=== PATIENT | female | born 1970 | race Caucasian/White ===

== ENCOUNTER 2023-05-21 04:51 | Emergency (ER) | payer OTHER, SELFPAY ==
[2023-05-21] VITALS (10 sets, daily range): BP systolic 152; BP diastolic 91; PULSE 56–85; RESP 16; TEMP 36.2; O2SAT 92–99; BMI 31.9
--- NOTE | 2023-05-21 05:20 | XR_ITS ---
Final Report Patient: JUAN J QUINTERO Facility:?[facility] Patient ID:?[id number] Site Patient ID:?[id number]. Site :?[id number] Study:?XRay Chest PA AND LATERAL-05/21/2023 5:44:33 AM Ordering Physician:Dariela Final Report: INDICATION: : Chest pain and flutter TECHNIQUE: PA and lateral 2 view chest COMPARISON: None FINDINGS: Lung volumes are good. No focal or diffuse opacities. No pleural effusion. No pneumothorax. Heart size is normal. IMPRESSION: Normal chest radiographs. Dictated by Yazmin Ferrara MD @ 05/21/2023 5:47:20 AM (Electronic Signature)
--- NOTE | 2023-05-21 05:22 | ED_ITS ---
HPI - General Adult General Chief complaint: Chest Pain Stated complaint: Chest discomfort. Time Seen by Provider: 05/21/23 05:08 Source: patient Mode of arrival: ambulatory Limitations: no limitations History of Present Illness HPI narrative: 52-year-old female presents to the emergency department for evaluation of chest discomfort and fluttering for the past few weeks, intermittent. Worsening over the last couple of days, unable to sleep tonight. She is uncertain if this is related to anxiety, menopause, stress or her heart. She has no personal history of cardiac disease. Maternal grandfather at a young age of what was suspected to be a heart attack but it is difficult to get confirmation of that, as the patient's mother was quite young at the time. No fevers, no shortness of breath, no dizziness or nausea or abdominal pain. Has not tried taking any medication to help with her symptoms. Initially, symptoms started while she was drinking hot coffee. Tend to last a few minutes to up to a few hours at a time. Does not feel like single large beats. No history of GERD or reported heartburn symptoms. No fever, trauma or injury. Pain not positional. Dull and achy, substernal, does not radiate. No prior history of similar symptoms or prior workup. Past medical history benign per her report. Has not seen a primary care provider in over a year. Does not take any regular medications, no allergies. Nonsmoker. Risk factor for heart disease include family history and obesity. Prior surgery includes only a lumbar back surgery, not recent. ROS is notable for the cardiac type chest symptoms as above, frequent hot flashes, otherwise denies times 12 systems. Related Data Home Medications Medication Instructions Recorded Confirmed No Known Home Medications 05/21/23 05/21/23 Allergies Allergy/AdvReac Type Severity Reaction Status Date / Time erythromycin Allergy Uncoded 05/21/23 05:00 PFSH PFSH Social History Non-prescribed substance use: denies use Exam Const: Vital Signs, click to edit/add: Vital Signs - 24 hr 05/21/23 05:01 05/21/23 05:05 05/21/23 05:06 Temperature 97.2 F L Pulse Rate 75 85 Pulse Rate [Pulse Oximeter] 79 Respiratory Rate 16 Blood Pressure 152/91 H Blood Pressure [Ri ght Upper Arm] 152/91 H Pulse Oximetry 98 97 97 Oxygen Delivery Me thod Room Air 05/21/23 05:15 Temperature Pulse Rate 81 Pulse Rate [Pulse Oximeter] Respiratory Rate Blood Pressure Blood Pressure [Ri ght Upper Arm] Pulse Oximetry 99 Oxygen Delivery Ny thod Documenting provider has reviewed patient's vital signs: yes Common normals: no apparent distress and alert General appearance: cooperative, comfortable and well kempt Other: Great historian. Friendly and cooperative. HENMT: Common normals: normocephalic Head and scalp: normocephalic Face and sinus: normal facial exam Mouth: oral and palatal mucosa normal Throat: posterior oropharynx normal Eye: Common normals: conjunctivae normal General eye: normal appearance of both eyes Conjunctiva: conjunctiva(e) normal Neck & C-Spine: Common normals: no lymphadenopathy General: normal visual inspection Chest: Common normals: inspection of chest normal and palpation of chest normal Resp: Common normals: normal respiratory effort, no use of accessory muscles and clear to auscultation bilaterally Effort & inspection: able to speak in complete sentences Auscultation: clear to auscultation bilaterally Cardio: Common normals: regular rate, regular rhythm, S1 normal heart sound, S2 normal heart sound and no murmurs Rate: regular rate Rhythm: regular rhythm Heart sounds: S1 normal and S2 normal GI: Common normals: Normal to inspection, nondistended, normoactive bowel sounds present, soft to palpation, non-tender, no hepatosplenomegaly and no masses Palpation: soft and no hepatosplenomegaly Extremity: Common normals: normal capillary refill and no pedal edema Neuro: Common normals: moves all extremities Sensorium/orientation: alert Speech: speech normal Psych: Common normals: thought process normal and speech normal Appearance: well kempt Activity/motor behavior: appropriate eye contact Speech: normal speech Thought process: normal thought process Insight: insight good Judgement: judgment good Skin: Common normals: no rashes or lesions noted General skin exam: no rashes or lesions noted Course Course ED Course: 52-year-old female with palpitations, occasional chest pain. Risk factors for heart disease include obesity and likely family history based on her description. Differential diagnosis includes thyroid disease, anxiety, soft spasm, NH, bronchospasm, pericarditis, musculoskeletal etiology, among others. Patient does have a smart watch but it does not have an arrhythmia detector. No signs of tachycardia, hypotension. Initial blood pressure is slightly elevated. No signs of hypoxia. Recommended EKG, playground monitor, basic labs including magnesium and thyroid level as well as liver function BNP, chest x-ray and typical electrolytes and CBC. No treatments at this time. Await findings. Reevaluation(s) Time of Reevaluation #1: 06:42 Reevaluation #1: Discussed findings with patient and significant other. All blood work, chest x- ray and EKG are reassuring. She has not had any significant episodes while in the ED for the last 90 minutes. We did not catch any signs of arrhythmia on our monitors. Have recommended that she see her primary care provider to arrange a Holter monitor and consider stress testing if appropriate. Counseled that this could also be GERD related and that a trial of proton pump inhibitor may be warranted if the Holter monitor is not revealing. Alarm symptoms reviewed that would warrant ED presentation. She verbalizes understanding and agreement. See written instructions, all questions answered. Vital Signs Vital signs: Initial Vital Signs Temperature 97.2 F L 05/21/23 05:01 Temperature Source Temporal Artery Scan 05/21/23 05:01 Pulse Rate 79 05/21/23 05:01 Pulse Strength 3+ Normal 05/21/23 05:01 Respiratory Rate 16 05/21/23 05:01 Blood Pressure 152/91 H 05/21/23 05:01 Blood Pressure Mean 111 H 05/21/23 05:01 Blood Pressure Position Sitting 05/21/23 05:01 Pulse Oximetry 98 05/21/23 05:01 Oxygen Delivery Method Room Air 05/21/23 05:01 Vital Signs Temperature 97.2 F L 05/21/23 05:01 Pulse Rate 79 05/21/23 05:01 Respiratory Rate 16 05/21/23 05:01 Blood Pressure 152/91 H 05/21/23 05:01 Pulse Oximetry 98 05/21/23 05:01 Oxygen Delivery Method Room Air 05/21/23 05:01 Temperature 97.2 F L 05/21/23 05:01 Pulse Rate 81 05/21/23 05:15 Respiratory Rate 16 05/21/23 05:01 Blood Pressure 152/91 H 05/21/23 05:05 Pulse Oximetry 99 05/21/23 05:15 Oxygen Delivery Method Room Air 05/21/23 05:01 Medical Decision Making Lab Data Labs: Lab Results 05/21/23 05/21/23 Range/Units 05:15 05:20 WBC 6.19 (4.50-11.00) K/uL RBC 4.96 (4.00-5.20) m/uL Hgb 14.6 (12.0-16.0) gm/dL Hct 44.4 (33.0-51.0) % MCV 90 (80-100) fL MCH 29 (26-34) pg MCHC 33 (32-36) gm/dL RDW Coeff of [place] 13.2 (11.5-15.5) % Plt Count 285 (140-440) K/uL Neut % (Auto) 61.6 (42.0-72.0) % Lymph % (Auto) 28.9 (20-44) % [place] % (Auto) 7.3 (0.0-11.0) % Eos % (Auto) 1.8 (0.0-7.0) % Baso % (Auto) 0.2 (0.0-3.0) % Neut # (Auto) 3.82 (1.7-7.0) K/uL Lymph # (Auto) 1.79 (0.90-2.90) K/uL [place] # (Auto) 0.50 (0.00-0.90) K/UL Eos # (Auto) 0.11 (0.00-0.50) K/uL Baso # (Auto) 0.01 (0.00-0.30) K/uL Abs Immat Gran (auto) 0.01 (0.00-0.30) K/uL Imm/Tot Granulo (auto) 0.2 % Sodium 139 (135-149) mmol/L Potassium 3.9 (3.6-5.1) mmol/L Chloride 105 (96-114) mmol/L Carbon Dioxide 25 (20-32) mmol/L Anion Gap 9 (7-15) mEq/L BUN 16 (7-30) mg/dL Creatinine 0.7 (0.5-1.5) mg/dL Estimated Creat Clear 76.00 Estimated GFR 103 ml/min Glucose 124 H (60-115) mg/dL Calcium 9.4 (8.4-10.6) mg/dL Magnesium 2.2 (1.5-2.6) mg/dL Total Bilirubin 0.4 (0.1-1.5) mg/dL AST 23 (12-35) U/L ALT 19 (4-35) U/L Alkaline Phosphatase 78 (40-150) U/L C-Reactive Protein < 0.5 L (0.5-1.0) mg/dL NT-Pro-B Natriuret Pep < 20 pg/mL Total Protein 7.6 (6.0-8.3) g/dL Albumin 4.4 (3.3-5.0) g/dL TSH 3.560 (0.270-4.200) uIU/mL POC Troponin I 0.00 L (0.01-0.04) ng/ml Imaging Data Chest x-ray: Attestation: I have reviewed the pertinent imaging results. My impression: Normal chest x-ray. Radiologist's impression: IMPRESSION: Normal chest radiographs. ECG Data Attestation: I personally reviewed and interpreted this ECG as follows: Prior ECG tracings: not available for review Interpretation: Normal sinus rhythm, rate 77. She does have some signs of atrial enlargement with enlarged P waves in lead [address] significant [address] or T-wave abnormalities. Normal axis and intervals otherwise. No significant ST or T- wave abnormalities. Overall, normal EKG. Discharge Plan Discharge Clinical Impression: Heart palpitations Patient Disposition: Home w/ Parent or Adult Condition: Improved Instructions: Heart Palpitations (DC) Additional Instructions: As we discussed, thankfully there are no signs of any emergent conditions going on today. The workup on your heart shows no signs of heart attack, arrhythmia or structural problem. This is good news. We did not catch any abnormal heartbeats on our monitoring here in the emergency department. There still is additional workup to explore in determining the cause of your symptoms. As discussed, this could be related to silent heartburn, sleep apnea, anxiety, menopause or a different underlying condition in the heart that we cannot detect here in the ED. I would recommend a follow-up with her primary care provider. T esting of your electrolytes, hemoglobin, thyroid, chest x-ray and EKG were all normal. They may consider doing a Holter monitor test, stress test or other additional workup. I would also like for them to recheck your blood pressure to make sure that there are no underlying signs of hypertension. I would limit caffeine to 1 cup of coffee or equivalent daily, no caffeine after 2:00 p.m.. Any severe symptoms, dizziness, loss of consciousness, severe crushing chest pain and or severe shortness of breath should be re-evaluated in the emergency department. Please make the follow-up appointment with your primary care provider at your earliest convenience. Activity Level: No Restrictions Discharge Diet: Regular Prescriptions: No Action No Known Home Medications Follow Up/Referrals: Talita Hernandez MD [Primary Care Provider] - 7 Days (Recheck palpi tations, ED follow-up. Consider Holter monitor) Carri Thomas DO [Referring] - Stand Alone Forms: [employer] Info Instructions
[2023-05-21 05:27] LABS: Basophils Absolute Auto 0.01 K/uL (0.00-0.30); Basophils Percent Auto 0.2 % (0.0-3.0); Eosinophils Absolute Auto 0.11 K/uL (0.00-0.50); Eosinophils Percent Auto 1.8 % (0.0-7.0); Hematocrit 44.4 % (33.0-51.0); Hemoglobin* 14.6 gm/dL (12.0-16.0); Immature Granulocytes Abs Auto 0.01 K/uL (0.00-0.30); Immature Granulocytes Pct Auto 0.2 %; Lymphocytes Absolute Auto 1.79 K/uL (0.90-2.90); Lymphocytes Percent Auto 28.9 % (20-44); Mean Corpuscular HGB Conc 33 gm/dL (32-36); Mean Corpuscular Hemoglobin 29 pg (26-34); Mean Corpuscular Volume 90 fL (80-100); Monocytes Percent Auto 7.3 % (0.0-11.0); Neutrophils Absolute Auto 3.82 K/uL (1.7-7.0); Neutrophils Percent Auto 61.6 % (42.0-72.0); Platelet Count* 285 K/uL (140-440); RDW Coefficient of Variation % 13.2 % (11.5-15.5); Red Blood Count 4.96 m/uL (4.00-5.20); White Blood Count* 6.19 K/uL (4.50-11.00)
[2023-05-21 05:33] LABS: Slide Review Reflex No
[2023-05-21 05:39] LABS: Albumin* 4.4 g/dL (3.3-5.0); Chloride* 105 mmol/L (96-114); Sodium* 139 mmol/L (135-149)
[2023-05-21 05:40] LABS: Potassium* 3.9 mmol/L (3.6-5.1)
[2023-05-21 05:42] LABS: Anion Gap 9 mEq/L (7-15); Bilirubin Total* 0.4 mg/dL (0.1-1.5); Carbon Dioxide* 25 mmol/L (20-32); Creatinine* 0.7 mg/dL (0.5-1.5); Estimated Glomerular Filt Rate 103 ml/min
[2023-05-21 05:43] LABS: Alanine Aminotransferase* 19 U/L (4-35); Alkaline Phosphatase* 78 U/L (40-150); Aspartate Amino Transferase* 23 U/L (12-35); Blood Urea Nitrogen* 16 mg/dL (7-30); Calcium* 9.4 mg/dL (8.4-10.6); Glucose* 124 mg/dL (60-115); Magnesium* 2.2 mg/dL (1.5-2.6); Total Protein* 7.6 g/dL (6.0-8.3)
[2023-05-21 05:57] LABS: C Reactive Protein* < 0.5 mg/dL (0.5-1.0); NT Pro B Type NatriureticPept* < 20 pg/mL
== END 2023-05-21 07:02 | disposition home or self-care (01) ==
PROVIDERS: Emergency Provider Family Medicine; PCP Family Medicine
DX: R00.2 Palpitations (principal)
CPT/HCPCS: 36415; 71046; 80053; 83735; 83880; 84443; 84484; 85025; 86140; 93005; 99284; 99285